=== PATIENT | female | born 1985 | race Caucasian/White ===

== ENCOUNTER 2017-03-16 03:13 | Emergency (ER) | payer OTHER ==
[~2017-03-16] VITALS: Ht 165.1 cm; Wt 53.5 kg
[2017-03-16 03:25] VITALS: Ht 165.1 cm; Wt 53.5 kg
[2017-03-16 06:08] VITALS: BP 109/68
== END 2017-03-16 06:08 | disposition home or self-care (01) ==
LOC: ED 03:13
DX: J20.9 Acute bronchitis, unspecified (principal); J06.9 Acute upper respiratory infection, unspecified
CPT/HCPCS: J1100